=== PATIENT | male | born 1935 | race Hispanic/Latino ===

== ENCOUNTER 2018-01-24 08:48 | Day surgery (SDC) | payer MEDICARE, BC ==
[2018-01-24] MEDS ORDERED: Propofol 10 mg/ml Inj (20 ML) ONE (10:08)
[2018-01-24] MEDS ORDERED: Etomidate 20 mg/10ml Inj IV ONE (10:27)
[2018-01-24] MEDS ORDERED: Sodium Chloride 0.9% 1,000 ML IV SCH (10:30)
[2018-01-24 10:37] VITALS: RESP 18; TEMP 98
[2018-01-24 11:16] VITALS: BP 142/70; PULSE 58; O2SAT 100
== END 2018-01-24 11:50 | disposition home or self-care (01) ==
LOC: ENDO 08:48
PROVIDERS: ATTEND Internal Medicine Gastroenterology
DX: K20.9 Esophagitis, unspecified (principal); K29.50 Unspecified chronic gastritis without bleeding; K29.80 Duodenitis without bleeding; K44.9 Diaphragmatic hernia without obstruction or gangrene; R13.10 Dysphagia, unspecified; R63.4 Abnormal weight loss; Z85.46 Personal history of malignant neoplasm of prostate